=== PATIENT | male | born 1995 | race Caucasian/White ===

== ENCOUNTER 2019-05-16 11:38 | Emergency (ER) | payer MEDICAID ==
--- NOTE | 2019-05-16 12:17 | ERPHSYRPT ---
- History of Present Illness Time Seen by Provider: 05/16/19 12:00 Source: patient Exam Limitations: no limitations Patient Subjective Stated Complaint: pt reports rash to left axillary region for one week. reports he believes it is spreading, reports itching. denies pain or fever. Triage Nursing Assessment: pt is aox3, pupils perrl, afebrile, resps easy and non labored, radial pulses strong and equal, cap refill < 3 seconds, pt skin pink warm dry. area of redness and peeling skin noted to the left axilla, no drainage noted, scattered small, round areas of redness noted to left scapula, left wrist and right knee. areas approx 1cm x 1cm. skin is intact at this time. Physician History: 23 y/o white male presents with a few day h/o itchy rash that began in left axilla and now a few lesions left upper ext. redness present around sites where pt has been scratching. no pus. never had before. no known exposures Quality: itchy Severity: mild Location: extremities (left axilla and left upper ext), axillary (L) Possible Causes: no cause identified Modifying Factors: Improves With: scratching Associated Symptoms: blisters (left axilla ), change in skin texture (left axilla ) Allergies/Adverse Reactions: No Known Drug Allergies Allergy (Verified 05/16/19 12:02) Hx Tetanus, Diphtheria Vaccination/Date Given: Yes Hx Influenza Vaccination/Date Given: No Hx Pneumococcal Vaccination/Date Given: No Immunizations Up to Date: Yes - Review of Systems Constitutional: No Symptoms Eyes: No Symptoms Ears, Nose, & Throat: No Symptoms Respiratory: No Symptoms Cardiac: No Symptoms Abdominal/Gastrointestinal: No Symptoms Genitourinary Symptoms: No Symptoms Musculoskeletal: No Symptoms Skin: Pruritis, Rash, Skin Lesions Neurological: No Symptoms Psychological: No Symptoms Endocrine: No Symptoms Hematologic/Lymphatic: No Symptoms Immunological/Allergic: No Symptoms All Other Systems: Reviewed and Negative - Past Medical History Pertinent Past Medical History: No Neurological History: No Pertinent History ENT History: No Pertinent History Cardiac History: No Pertinent History Respiratory History: No Pertinent History Endocrine Medical History: No Pertinent History Musculoskeletal History: No Pertinent History, Other GI Medical History: No Pertinent History History: No Pertinent History Psycho-Social History: No Pertinent History Male Reproductive Disorders: No Pertinent History - Past Surgical History Past Surgical History: Yes Cardiac: No Pertinent History Respiratory: No Pertinent History Gastrointestinal: No Pertinent History Genitourinary: No Pertinent History Musculoskeletal: No Pertinent History, Orthopedic Surgery Male Surgical History: No Pertinent History Other Surgical History: sinus - Social History Smoking Status: Current every day smoker How long have you smoked: 4 Exposure to second hand smoke: No Drug Use: none Patient Lives Alone: No - Nursing Vital Signs Nursing Vital Signs: Initial Vital Signs Temperature 98.2 F 05/16/19 11:51 Pulse Rate 55 L 05/16/19 11:51 Respiratory Rate 20 05/16/19 11:51 Blood Pressure 117/72 05/16/19 11:51 O2 Sat by Pulse Oximetry 99 05/16/19 11:51 Pain Scale Pain Intensity 0 - Physical Exam General Appearance: no apparent distress, alert Eye Exam: PERRL/EOMI, eyes nml inspection Ears, Nose, Throat Exam: normal ENT inspection, moist mucous membranes Neck Exam: normal inspection, non-tender, supple, full range of motion Respiratory Exam: normal breath sounds, lungs clear, airway intact, No chest tenderness, No respiratory distress Cardiovascular Exam: regular rate/rhythm Gastrointestinal/Abdomen Exam: soft, normal bowel sounds, No tenderness Rectal Exam: not done Back Exam: normal inspection, normal range of motion, No CVA tenderness, No vertebral tenderness Extremity Exam: normal inspection, normal range of motion, pelvis stable Neurologic Exam: alert, oriented x 3, cooperative, pallet rectifier II-XII nml as tested Skin Exam: rash (dry eschar patch left axilla with dry blistered skin plus several single left upper ext left wrist and forearmeschars) Lymphatic Exam: No adenopathy SpO2 Interpretation: normal SpO2: 99 O2 Delivery: Room Air - Course Nursing assessment & vital signs reviewed: Yes - Progress Progress: unchanged Counseled pt/family regarding: diagnosis, need for follow-up - Departure Departure Disposition: Home Clinical Impression: Rash and nonspecific skin eruption, Cellulitis Condition: Stable Critical Care Time: No Additional Instructions: keep all sites clean daily with soap and water. do not scratch. apply ointment prescribed. follow up with primary doctor for further management Prescriptions: Mupirocin [Bactroban OINTMENT] 22 gm TP TID #1 tube Prednisone 10 mg [Deltasone 10 mg] 10 mg PO BID #6 tablet Smz/Tmp Ds Tablet [Bactrim Ds Tablet] 1 udtab PO BID #14 tablet
[2019-05-16 14:06] VITALS: BP 116/78; PULSE 62; O2SAT 99
== END 2019-05-16 14:06 | disposition home or self-care (01) ==
LOC: ED 11:38
DX: R21 Rash and other nonspecific skin eruption (principal); L03.90 Cellulitis, unspecified
CPT/HCPCS: 99283

== ENCOUNTER 2021-05-05 18:33 | Emergency (ER) | payer MEDICAID, OTHER ==
[2021-05-05 19:17] LABS: Absolute Neutrophil Ct (ANC) 1.85 (1.4-6.9); BASOPHIL % 0.7 % (0.0-0.4); Basophil (Absolute #) 0.05 (0-0.4); Eosinophil % 8.6 % (0.00-5.0); Eosinophil (Absolute #) 0.64 (0-0.5); Hematocrit 42.5 % (42-50); Hemoglobin 14.2 gm/dl (12.5-18.0); Lymphocyte (Absolute #) 4.11 (1.0-4.6); Lymphocytes % 55.1 % (24.0-44.0); Mean Cell Volume 96.8 fl (78-100); Mean Corpuscular Hemoglobin 32.3 pg (26-32); Mean Corpuscular Hgb Concent. 33.4 g/dl (32-36); Mean Platelet Volume 11.5 fl (7.5-11.0); Monocyte (Absolute #) 0.81 (0.0-1.3); Monocytes % 10.9 % (0.0-12.0); Neutrophil % 24.7 % (36.0-66.0); Platelet Count 244 K/mm3 (150-450); Red Blood Count 4.39 M/mm3 (4.1-5.6); Red Cell Distribution Width 13.4 % (11.5-14.0); White Blood Count 7.5 K/mm3 (4.0-10.5)
--- NOTE | 2021-05-05 19:21 | ERPHSYRPT ---
- History of Present Illness Time Seen by Provider: 05/05/21 19:18 Source: patient Exam Limitations: no limitations Patient Subjective Stated Complaint: Pt states that he has been having intermittant chest pain for the past couple of weeks and today the pain has increased Triage Nursing Assessment: Pt brought to the ER by his , annabelle alexis, rates pain as 10/10, reports pain under his left breast, skin n/w/d, pulses normal, denies any cardiac history, appears to be in moderate pain Physician History: This is a 25-year-old white male who has no significant medical history and presents with at least a month history of initial intermittent left anterior lower chest pain that is more of an ache. There is been no radiation of pain. He has had no significant cough. He has had no fevers chills. But he has had a ssociated shortness of breath. In the last several days his symptoms of shortness of breath and pain have worsened. He has no primary care physician. He is not having any abdominal pain. He is not having any nausea vomiting or diarrhea symptoms. Activities at Onset: none Severity of Dyspnea-Max: mild Severity of Dyspnea-Current: mild Possible Cause: no prior episodes Associated Symptoms: chest pain/discomfort, No cough, No productive cough Allergies/Adverse Reactions: No Known Drug Allergies Allergy (Verified 05/05/21 18:42) Home Medications: No Reportable Medications [No Reported Medications] 05/05/21 [History] Hx Tetanus, Diphtheria Vaccination/Date Given: Yes Hx Influenza Vaccination/Date Given: No Hx Pneumococcal Vaccination/Date Given: No Travel Risk - International Travel Have you traveled outside of the country in past 3 weeks: No - Coronavirus Screening Are you exhibiting any of the following symptoms?: No Close contact with a COVID-19 positive Pt in past 14-21 Days: No - Vaccine Status Have you recieved a Covid-19 vaccination: No - Review of Systems Constitutional: No Symptoms Eyes: No Symptoms Ears, Nose, & Throat: No Symptoms Respiratory: Dyspnea Cardiac: Chest Pain (Mild left anterior chest without radiation) Abdominal/Gastrointestinal: No Symptoms Genitourinary Symptoms: No Symptoms Musculoskeletal: No Symptoms Skin: No Symptoms Neurological: No Symptoms Psychological: No Symptoms Endocrine: No Symptoms Hematologic/Lymphatic: No Symptoms Immunological/Allergic: No Symptoms All Other Systems: Reviewed and Negative - Past Medical History Pertinent Past Medical History: No Neurological History: No Pertinent History ENT History: No Pertinent History Cardiac History: No Pertinent History Respiratory History: No Pertinent History Endocrine Medical History: No Pertinent History Musculoskeletal History: No Pertinent History GI Medical History: No Pertinent History History: No Pertinent History Psycho-Social History: No Pertinent History Male Reproductive Disorders: No Pertinent History - Past Surgical History Past Surgical History: Yes Cardiac: No Pertinent History Respiratory: No Pertinent History Gastrointestinal: No Pertinent History Genitourinary: No Pertinent History Musculoskeletal: No Pertinent History, Orthopedic Surgery Male Surgical History: No Pertinent History Other Surgical History: sinus - Social History Smoking Status: Current every day smoker How long have you smoked: 4 Exposure to second hand smoke: Yes Drug Use: marijuana Patient Lives Alone: No - Nursing Vital Signs Nursing Vital Signs: Initial Vital Signs Pulse Rate 66 05/05/21 18:36 Respiratory Rate 17 05/05/21 18:36 Blood Pressure 124/83 05/05/21 18:36 O2 Sat by Pulse Oximetry 100 05/05/21 18:36 Pain Scale Pain Intensity 8 - Physical Exam General Appearance: no apparent distress, alert, anxiety Eye Exam: PERRL/EOMI, eyes nml inspection Ears, Nose, Throat Exam: hearing grossly normal, normal ENT inspection, normal pharynx Neck Exam: normal inspection, non-tender, supple, full range of motion Respiratory Exam: normal breath sounds, chest tenderness (Left anterior chest), lungs clear, airway intact, No respiratory distress Cardiovascular/Chest Exam: normal heart sounds, regular rate/rhythm Abdominal/Gastrointestinal Exam: soft, normal bowel sounds, No tenderness Rectal Exam: not done Extremity Exam: non-tender, normal range of motion, normal inspection Neurologic Exam: alert, oriented x 3, cooperative, talent development director II-XII nml as tested, normal mood/affect, nml cerebellar function, nml station & gait Skin Exam: normal color, warm, dry Lymphatic Exam: No adenopathy SpO2 Interpretation: normal SpO2: 100 O2 Delivery: Room Air - Course Nursing assessment & vital signs reviewed: Yes EKG Interpreted by Me: RATE (73), Sinus Rhythm, NORMAL AXIS, NORMAL INTERVALS, Right Bundle Branch Block, NORMAL ST-T, Other (PVCs. No acute ischemic changes on today's EKG. There is no comparison EKG available.) Ordered Tests: Active Orders 24 hr Category Date Time Status Osteopathic Neurologist STAT Care 05/05/21 18:55 Active EKG-ER Only STAT Care 05/05/21 18:55 Active IV Insertion STAT Care 05/05/21 18:55 Active CHEST 2 VIEWS (PA AND LAT) Stat Exams 05/05/21 18:51 Taken CBC W DIFF Stat Lab 05/05/21 18:40 Completed CMP Stat Lab 05/05/21 18:40 Completed D-DIMER QUANTITATIVE Stat Lab 05/05/21 18:40 Completed TROPONIN Q3H Lab 05/05/21 18:40 Completed TROPONIN Q3H Lab 05/05/21 22:00 Ordered TROPONIN Q3H Lab 05/06/21 01:00 Ordered TROPONIN Q3H Lab 05/06/21 04:00 Ordered TROPONIN Q3H Lab 05/06/21 07:00 Ordered Urine Triage Profile Stat Lab 05/05/21 19:07 Completed Medication Summary Discontinued Medications Generic Name Dose Route Start Last Admin Trade Name Freq PRN Reason Stop Dose Admin Hydrocodone Bitart/Acetaminophen 2 tab 05/05/21 19:50 05/05/21 19:53 Wallace 5/325 Mg PO 05/05/21 19:51 2 tab STAT ONE Administration Hydrocodone Bitart/Acetaminophen Confirm 05/05/21 19:52 Wallace 5/325 Mg Administered 05/05/21 19:53 Dose 2 tab .ROUTE .STK-MED ONE Lab/Rad Data: Laboratory Result Diagrams 05/05/21 18:40 05/05/21 18:40 Laboratory Results 05/05/21 05/05/21 05/05/21 Range/Units 19:07 18:40 18:40 WBC (4.0-10.5) K/mm3 RBC (4.1-5.6) M/mm3 Hgb (12.5-18.0) gm/dl Hct (42-50) % MCV (78-100) fl MCH (26-32) pg MCHC (32-36) g/dl RDW (11.5-14.0) % Plt Count (150-450) K/mm3 MPV (7.5-11.0) fl Gran % (36.0-66.0) % Eos # (Auto) (0-0.5) Absolute Lymphs (auto) (1.0-4.6) Absolute Monos (auto) (0.0-1.3) Lymphocytes % (24.0-44.0) % Monocytes % (0.0-12.0) % Eosinophils % (0.00-5.0) % Basophils % (0.0-0.4) % Absolute Granulocytes (1.4-6.9) Basophils # (0-0.4) D-Dimer 283 (215-500) ng/mL Sodium (137-145) mmol/L Potassium (3.5-5.1) mmol/L Chloride (98-107) mmol/L Carbon Dioxide (22-30) mmol/L Anion Gap (5-15) MEQ/L BUN (9-20) mg/dL Creatinine (0.66-1.25) mg/dL Estimated GFR ML/MIN Glucose (74-106) mg/dL Calcium (8.4-10.2) mg/dL Total Bilirubin (0.2-1.3) mg/dL AST (17-59) U/L ALT (0-50) U/L Alkaline Phosphatase (38-126) U/L Troponin I < 0.012 (0.000-0.034) ng/mL Serum Total Protein (6.3-8.2) g/dL Albumin (3.5-5.0) g/dL Urine Opiates Level NEGATIVE (NEGATIVE) Ur Methadone NEGATIVE (NEGATIVE) Urine Barbiturates NEGATIVE (NEGATIVE) Ur Phencyclidine (PCP) NEGATIVE (NEGATIVE) Urine Amphetamine NEGATIVE (NEGATIVE) U Benzodiazepine Level NEGATIVE (NEGATIVE) Urine Cocaine NEGATIVE (NEGATIVE) Urine Marijuana (THC) POSITIVE (NEGATIVE) 05/05/21 05/05/21 Range/Units 18:40 18:40 WBC 7.5 (4.0-10.5) K/mm3 RBC 4.39 (4.1-5.6) M/mm3 Hgb 14.2 (12.5-18.0) gm/dl Hct 42.5 (42-50) % MCV 96.8 (78-100) fl MCH 32.3 H (26-32) pg MCHC 33.4 (32-36) g/dl RDW 13.4 (11.5-14.0) % Plt Count 244 (150-450) K/mm3 MPV 11.5 H (7.5-11.0) fl Gran % 24.7 L (36.0-66.0) % Eos # (Auto) 0.64 H (0-0.5) Absolute Lymphs (auto) 4.11 (1.0-4.6) Absolute Monos (auto) 0.81 (0.0-1.3) Lymphocytes % 55.1 H (24.0-44.0) % Monocytes % 10.9 (0.0-12.0) % Eosinophils % 8.6 H (0.00-5.0) % Basophils % 0.7 (0.0-0.4) % Absolute Granulocytes 1.85 (1.4-6.9) Basophils # 0.05 (0-0.4) D-Dimer (215-500) ng/mL Sodium 140 (137-145) mmol/L Potassium 3.6 (3.5-5.1) mmol/L Chloride 105 (98-107) mmol/L Carbon Dioxide 23 (22-30) mmol/L Anion Gap 15.1 H (5-15) MEQ/L BUN 10 (9-20) mg/dL Creatinine 0.87 (0.66-1.25) mg/dL Estimated GFR > 60.0 ML/MIN Glucose 125 H (74-106) mg/dL Calcium 9.3 (8.4-10.2) mg/dL Total Bilirubin 0.20 (0.2-1.3) mg/dL AST 28 (17-59) U/L ALT 16 (0-50) U/L Alkaline Phosphatase 81 (38-126) U/L Troponin I (0.000-0.034) ng/mL Serum Total Protein 6.9 (6.3-8.2) g/dL Albumin 4.3 (3.5-5.0) g/dL Urine Opiates Level (NEGATIVE) Ur Methadone (NEGATIVE) Urine Barbiturates (NEGATIVE) Ur Phencyclidine (PCP) (NEGATIVE) Urine Amphetamine (NEGATIVE) U Benzodiazepine Level (NEGATIVE) Urine Cocaine (NEGATIVE) Urine Marijuana (THC) (NEGATIVE) - Progress Progress: re-examined Air Movement: good Progress Note: 05/05/21 19:49 Chest x-ray no acute cardiopulmonary process. Blood Culture(s) Obtained: No Antibiotics given: No Counseled pt/family regarding: lab results, diagnosis, need for follow-up, rad results - Departure Departure Disposition: Home Clinical Impression: Shortness of breath Condition: Stable Critical Care Time: No Referrals: DOCTOR,NO FAMILY [Primary Care Provider] - Instructions: Cough, Adult (DC) Additional Instructions: Follow-up with your primary care physician for further management. Stop using any inhalation product such as cigarettes marijuana or other types of exposure to smoke. Forms: Work/School Release Form
[2021-05-05 19:29] LABS: ALBUMIN 4.3 g/dL (3.5-5.0); ALKALINE PHOSPHATASE 81 U/L (38-126); ANION GAP 15.1 MEQ/L (5-15); BLOOD UREA NITROGEN 10 mg/dL (9-20); CHLORIDE 105 mmol/L (98-107); Calcium 9.3 mg/dL (8.4-10.2); Carbon Dioxide 23 mmol/L (22-30); Creatinine 1 0.87 mg/dL (0.66-1.25); EST GLOMERULAR FILTRATION RATE > 60.0 ML/MIN; Glucose 125 mg/dL (74-106); Potassium 3.6 mmol/L (3.5-5.1); SGOT/AST 28 U/L (17-59); SGPT/ALT 16 U/L (0-50); SODIUM 140 mmol/L (137-145); Total Protein 6.9 g/dL (6.3-8.2)
[2021-05-05 19:32] LABS: Amphetamine,Urine NEGATIVE (NEGATIVE); Barbiturate,Urine NEGATIVE (NEGATIVE); Benzodiazepine,Urine NEGATIVE (NEGATIVE); Cocaine,Urine NEGATIVE (NEGATIVE); Methadone,Urine NEGATIVE (NEGATIVE); Opiate,Urine NEGATIVE (NEGATIVE); PCP,Urine NEGATIVE (NEGATIVE); THC,Urine POSITIVE (NEGATIVE)
[2021-05-05 19:41] VITALS: PULSE 68
[2021-05-05] MEDS ORDERED: NORCO 5/325 MG PO ONE (19:50)
[2021-05-05] MEDS ORDERED: NORCO 5/325 MG ONE (19:52)
[2021-05-05 20:11] VITALS: BP 125/81
[2021-05-05 20:12] VITALS: O2SAT 100
--- NOTE | 2021-05-06 08:32 | XRAY ---
Indication: Short of breath. Comparison: None PA/lateral chest demonstrates normal heart, lungs, and bony thorax with a few incidental tiny calcified granulomas.
== END 2021-05-05 20:19 | disposition home or self-care (01) ==
LOC: ED 18:33
DX: R06.02 Shortness of breath (principal); R07.89 Other chest pain
CPT/HCPCS: 36000; 36415; 71046; 80053; 80307; 84484; 85025; 85379; 93005; 93041; 99284; U0003; A9270-GY

== ENCOUNTER 2021-05-11 15:40 | Emergency (ER) | payer MEDICAID ==
[2021-05-11 15:41] VITALS: O2SAT 100
--- NOTE | 2021-05-11 15:45 | ERPHSYRPT ---
- History of Present Illness Time Seen by Provider: 05/11/21 15:45 Source: patient Exam Limitations: no limitations Physician History: This is a 25-year-old white male who presents with laceration to his right lower extremity. It was accidental occurred prior to arrival. Patient was brought in by EMS service. Patient was walking on a glass table when it collapsed causing a laceration to his right anterior tibial region. His tetanus is up-to-date. Timing/Duration: today Quality: painful Severity: moderate Location: extremities (Right anterior mid tibial region ) Allergies/Adverse Reactions: No Known Drug Allergies Allergy (Verified 05/11/21 15:41) Hx Tetanus, Diphtheria Vaccination/Date Given: Yes Hx Influenza Vaccination/Date Given: No Hx Pneumococcal Vaccination/Date Given: No Travel Risk - International Travel Have you traveled outside of the country in past 3 weeks: No - Coronavirus Screening Are you exhibiting any of the following symptoms?: No Close contact with a COVID-19 positive Pt in past 14-21 Days: No - Vaccine Status Have you recieved a Covid-19 vaccination: No - Review of Systems Constitutional: No Symptoms Eyes: No Symptoms Ears, Nose, & Throat: No Symptoms Respiratory: No Symptoms Cardiac: No Symptoms Abdominal/Gastrointestinal: No Symptoms Genitourinary Symptoms: No Symptoms Musculoskeletal: No Symptoms Skin: Other (Laceration mid tibia right side) Neurological: No Symptoms Psychological: No Symptoms Endocrine: No Symptoms Hematologic/Lymphatic: No Symptoms Immunological/Allergic: No Symptoms All Other Systems: Reviewed and Negative - Past Medical History Pertinent Past Medical History: No Neurological History: No Pertinent History ENT History: No Pertinent History Cardiac History: No Pertinent History Respiratory History: No Pertinent History Endocrine Medical History: No Pertinent History Musculoskeletal History: No Pertinent History GI Medical History: No Pertinent History History: No Pertinent History Psycho-Social History: No Pertinent History Male Reproductive Disorders: No Pertinent History - Past Surgical History Past Surgical History: No Cardiac: No Pertinent History Respiratory: No Pertinent History Gastrointestinal: No Pertinent History Genitourinary: No Pertinent History Musculoskeletal: No Pertinent History, Orthopedic Surgery Male Surgical History: No Pertinent History Other Surgical History: sinus - Social History Smoking Status: Current every day smoker How long have you smoked: 4 Exposure to second hand smoke: Yes Drug Use: marijuana Patient Lives Alone: No - Nursing Vital Signs Nursing Vital Signs: Initial Vital Signs Temperature 97.7 F 05/11/21 15:41 Pulse Rate 71 09/04/21 15:41 Respiratory Rate 18 05/11/21 15:41 Blood Pressure 133/77 05/11/21 15:41 O2 Sat by Pulse Oximetry 100 05/11/21 15:41 Pain Scale Pain Intensity 10 - Physical Exam General Appearance: no apparent distress, alert, anxiety Ears, Nose, Throat Exam: normal ENT inspection, moist mucous membranes Neck Exam: normal inspection, non-tender, supple, full range of motion Respiratory Exam: normal breath sounds, lungs clear, airway intact, No chest tenderness, No respiratory distress Cardiovascular Exam: regular rate/rhythm, normal heart sounds, normal peripheral pulses Gastrointestinal/Abdomen Exam: soft, normal bowel sounds, No tenderness Rectal Exam: not done Back Exam: normal inspection, normal range of motion, No CVA tenderness, No vertebral tenderness Extremity Exam: normal inspection, normal range of motion, pelvis stable Neurologic Exam: alert, oriented x 3, cooperative, dealer account manager II-XII nml as tested, normal mood/affect, nml cerebellar function, nml station & gait, sensation nml Skin Exam: warm, other (3 inch x 3 inch deep laceration through the subcutaneous tissue layer. No foreign bodies appreciated. No active bleeding present) Lymphatic Exam: No adenopathy SpO2 Interpretation: normal SpO2: 100 O2 Delivery: Room Air Procedures - Laceration/Wound Repair Right Anterior Other Time of Procedure: 16:00 Wound Location: Right Wound Length (cm): 7.5 Wound's Depth, Shape: into subcut Wound Explored: clean (Wound was explored. Is clean, no foreign body noted, bloodless field and exploration examination occurred to the base of the wound) Irrigated: Yes Hibiclens Prep: Yes Anesthesia: local, 1% Lidocaine Wound Repaired With: sutures, [place] Suture Size/Type: 3-0, prolene Number of Sutures: 4 (+8 ness) Progress: 05/11/21 16:45 After the repair was performed, the area was cleaned and dried and a thin layer of antibiotic ointment was placed overlying the laceration repair site. Nonstick gauze 4 x 4 gauze and pressure dressing was applied to the area. There were no complications. The patient told the procedure well. - Course Nursing assessment & vital signs reviewed: Yes Ordered Tests: Medication Summary Discontinued Medications Generic Name Dose Route Start Last Admin Trade Name Freq PRN Reason Stop Dose Admin Bacitracin Zinc 0.9 gm 05/11/21 15:52 05/11/21 15:58 Baciguent Packet TP 05/11/21 15:53 0.9 gm STAT ONE Administration Bacitracin Zinc Confirm 05/11/21 15:55 Baciguent Packet Administered 05/11/21 15:56 Dose 1 gm .ROUTE .STK-MED ONE Hydromorphone HCl 1 mg 05/11/21 15:51 05/11/21 15:59 Hydromorphone 1 Mg/Ml Injection IM 05/11/21 15:52 1 mg STAT ONE Administration Hydromorphone HCl Confirm 05/11/21 15:56 Hydromorphone 1 Mg/Ml Injection Administered 05/11/21 15:57 Dose 1 mg .ROUTE .STK-MED ONE Lidocaine HCl 10 ml 05/11/21 15:52 05/11/21 15:59 Xylocaine 1% Hcl 20 Ml Mdv IJ 05/11/21 15:53 10 ml STAT ONE Administration Ondansetron HCl 4 mg 05/11/21 15:51 05/11/21 15:57 Zofran Odt 4 Mg PO 05/11/21 15:52 4 mg STAT ONE Administration Ondansetron HCl Confirm 05/11/21 15:56 Zofran Odt 4 Mg Administered 05/11/21 15:57 Dose 4 mg .ROUTE .STK-MED ONE - Progress Progress: improved, pain not gone completely Counseled pt/family regarding: diagnosis, need for follow-up - Departure Departure Disposition: Home Clinical Impression: Laceration of right lower leg Condition: Stable Critical Care Time: No Referrals: DOCTOR,NO FAMILY [Primary Care Provider] - Additional Instructions: Keep the pressure dressing in place for 48 hours. After 48 hours, may take off all the dressings and wash the site with soap and water each day. Blot dry or use a hairdryer to dry the laceration repair site. Apply antibiotic ointment of choice to the laceration repair site each day and cover with a bandage. Follow- up with primary care physician or return to the emergency department for suture and staple removal in approximately 10 days. Forms: Work/School Release Form Prescriptions: Hydrocodone/APAP 5/325 [Rhodelia 5/325 mg] 1 each PO Q8H PRN PRN #8 tablet MDD 3 PRN Reason: Pain Cephalexin Mh 500 mg [Keflex 500 mg] 500 mg PO TID #21 cap
[2021-05-11] MEDS ORDERED: Hydromorphone 1 mg/ml Injection IM ONE (15:51)
[2021-05-11] MEDS ORDERED: ZOFRAN ODT 4 MG PO ONE (15:51)
[2021-05-11] MEDS ORDERED: BACIGUENT PACKET TP ONE (15:52)
[2021-05-11] MEDS ORDERED: XYLOCAINE 1% HCL 20 ML MDV IJ ONE (15:52)
[2021-05-11] MEDS ORDERED: BACIGUENT PACKET ONE (15:55)
[2021-05-11] MEDS ORDERED: ZOFRAN ODT 4 MG ONE (15:56)
[2021-05-11] MEDS ORDERED: Hydromorphone 1 mg/ml Injection ONE (15:56)
[2021-05-11 16:50] VITALS: BP 129/88; PULSE 57
== END 2021-05-11 17:02 | disposition home or self-care (01) ==
LOC: ED 15:40
DX: S81.811A Laceration without foreign body, right lower leg, initial encounter (principal); W18.02XA Striking against glass with subsequent fall, initial encounter; Y93.01 Activity, walking, marching and hiking; Y92.89 Other specified places as the place of occurrence of the external cause
CPT/HCPCS: 12002; 96372; 99284; J1170; Q0162; A9270-GY

== ENCOUNTER 2021-05-23 19:16 | Emergency (ER) | payer MEDICAID ==
[2021-05-23 19:30] VITALS: BP 124/85; PULSE 63; O2SAT 99
--- NOTE | 2021-05-23 19:35 | ERPHSYRPT ---
- History of Present Illness Time Seen by Provider: 05/23/21 19:26 Source: patient Exam Limitations: no limitations Patient Subjective Stated Complaint: Patient states he was in the ER approx 10 days ago after cutting his right jasmine on a glass table. He had sutures and sta ples placed to laceration/cut at that time and they are due to come out today. He missed his 3:30pm appointment today to have them removed due to work schedule. Triage Nursing Assessment: Area is well approximated with 4 sutures and 9 ness intact. No drainage, pain, tenderness, warmth, or swelling noted to area. Slight redness around some ness but is minimal. Moves RLE WNL without difficulties. Ambulating without difficulties. No changes reported in mobility. Physician History: 25 years old with right lower leg laceration almost 10 days ago repaired with sutures and stapling is here for reevaluation and staple/suture removal. Denies any discharge swelling or pain. Allergies/Adverse Reactions: No Known Drug Allergies Allergy (Verified 05/23/21 19:30) Hx Tetanus, Diphtheria Vaccination/Date Given: Yes Hx Influenza Vaccination/Date Given: Yes Hx Pneumococcal Vaccination/Date Given: No Immunizations Up to Date: Yes Travel Risk - International Travel Have you traveled outside of the country in past 3 weeks: No - Coronavirus Screening Are you exhibiting any of the following symptoms?: No Close contact with a COVID-19 positive Pt in past 14-21 Days: No - Vaccine Status Have you recieved a Covid-19 vaccination: Yes [employer]: Unknown - Vaccination Dates Dates if Unknown: Approx January 2021 - Review of Systems Constitutional: No Symptoms Respiratory: No Symptoms Cardiac: No Symptoms Abdominal/Gastrointestinal: No Symptoms Musculoskeletal: No Symptoms Neurological: No Symptoms - Past Medical History Pertinent Past Medical History: No Neurological History: No Pertinent History ENT History: No Pertinent History Cardiac History: No Pertinent History Respiratory History: No Pertinent History Endocrine Medical History: No Pertinent History Musculoskeletal History: No Pertinent History GI Medical History: No Pertinent History History: No Pertinent History Psycho-Social History: No Pertinent History Male Reproductive Disorders: No Pertinent History - Past Surgical History Past Surgical History: No Cardiac: No Pertinent History Respiratory: No Pertinent History Gastrointestinal: No Pertinent History Genitourinary: No Pertinent History Musculoskeletal: No Pertinent History, Orthopedic Surgery Male Surgical History: No Pertinent History Other Surgical History: sinus - Social History Smoking Status: Former smoker How long have you smoked: 4 Exposure to second hand smoke: Yes Drug Use: marijuana Patient Lives Alone: No - Nursing Vital Signs Nursing Vital Signs: Initial Vital Signs Temperature 98 F 05/23/21 19:23 Pulse Rate 63 05/23/21 19:23 Respiratory Rate 18 05/23/21 19:23 Blood Pressure 124/85 05/23/21 19:23 O2 Sat by Pulse Oximetry 99 05/23/21 19:23 Pain Scale Pain Intensity 0 - Physical Exam General Appearance: no apparent distress Neck Exam: normal inspection, full range of motion Respiratory Exam: normal breath sounds, lungs clear Cardiovascular Exam: regular rate/rhythm, normal heart sounds Extremity Exam: other (Right lower leg laceration with staple and sutures. No erythema. All the sutures are removed. Alternate stitches are removed as edges seems to be a little bit . We will continue to have some ness in to avoid wound dehiscence.) Neurologic Exam: alert, oriented x 3, cooperative Skin Exam: normal color SpO2 Interpretation: normal SpO2: 99 O2 Delivery: Room Air - Progress Progress Note: 05/23/21 19:34 Sutures are removed, alternate ness are removed and will give another week to have full strength wound closure to avoid dehiscence as with ambulation I believe with pressure and will come apart. Recommended avoiding exertional activity. Counseled pt/family regarding: diagnosis, need for follow-up - Departure Departure Disposition: Home Clinical Impression: Encounter for wound re-check, Visit for suture removal Condition: Stable Critical Care Time: No Referrals: DOCTOR,NO FAMILY [Primary Care Provider] - Instructions: Wound Care (DC) Additional Instructions: Return to ER in 1 week for rest of staple removal. Keep it clean. Avoid exertional activity.
== END 2021-05-23 19:40 | disposition home or self-care (01) ==
LOC: ED 19:16
DX: Z48.02 Encounter for removal of sutures (principal)
CPT/HCPCS: 99283; G0463

== ENCOUNTER 2021-08-29 16:26 | Emergency (ER) | payer MEDICAID ==
--- NOTE | 2021-08-29 16:41 | ERPHSYRPT ---
- History of Present Illness Time Seen by Provider: 08/29/21 16:41 Historian: patient Exam Limitations: no limitations Physician History: This is a 25-year-old white male who takes no medications chronically and has no known drug allergies and presents with multiple complaints including abdominal discomfort, body aches and pains and severe headache. Patient states the primary reason he is here is his severe headache without history of trauma. Patient states he has had the headache for approximately 1 week and has been using Tylenol and ibuprofen with minimal relief. He has not sought medical care for these conditions. He has no significant chest pain, he has no shortness of breath. He denies fever. He has no known exposure individuals with viral illnesses. Patient himself states that he has anxiety issues. He does smoke cigarettes. Patient also states he smokes "a lot of marijuana" Timing/Duration: week(s) Activities at Onset: none Quality: aching Abdominal Pain Onset Location: generalized abdomen Severity of Pain-Max: mild Severity of Pain-Current: none Modifying Factors: Improves With: nothing Associated Symptoms: other (Headache) Previous symptoms: no prior history Allergies/Adverse Reactions: No Known Drug Allergies Allergy (Verified 08/29/21 16:52) Hx Tetanus, Diphtheria Vaccination/Date Given: Yes Hx Influenza Vaccination/Date Given: Yes Hx Pneumococcal Vaccination/Date Given: No Travel Risk - International Travel Have you traveled outside of the country in past 3 weeks: No - Coronavirus Screening Are you exhibiting any of the following symptoms?: Yes Symptoms: Headaches/Body Aches/Fatigue Close contact with a COVID-19 positive Pt in past 14-21 Days: No - Vaccine Status Have you recieved a Covid-19 vaccination: Yes 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 - Vaccination Dates Dates if Unknown: Approx January 2021 - Review of Systems Constitutional: No Symptoms Eyes: No Symptoms Ears, Nose, & Throat: No Symptoms Respiratory: No Symptoms Cardiac: No Symptoms Abdominal/Gastrointestinal: Abdominal Pain (Mild generalized) Genitourinary Symptoms: No Symptoms Musculoskeletal: Arthralgias, Myalgias Skin: No Symptoms Neurological: Headache Psychological: No Symptoms Endocrine: No Symptoms Hematologic/Lymphatic: No Symptoms Immunological/Allergic: No Symptoms All Other Systems: Reviewed and Negative - Past Medical History Pertinent Past Medical History: No Neurological History: No Pertinent History ENT History: No Pertinent History Cardiac History: No Pertinent History Respiratory History: No Pertinent History Endocrine Medical History: No Pertinent History Musculoskeletal History: No Pertinent History GI Medical History: No Pertinent History History: No Pertinent History Psycho-Social History: No Pertinent History Male Reproductive Disorders: No Pertinent History - Past Surgical History Past Surgical History: No Cardiac: No Pertinent History Respiratory: No Pertinent History Gastrointestinal: No Pertinent History Genitourinary: No Pertinent History Musculoskeletal: No Pertinent History, Orthopedic Surgery Male Surgical History: No Pertinent History Other Surgical History: sinus - Social History Smoking Status: Former smoker How long have you smoked: 4 Exposure to second hand smoke: Yes Drug Use: marijuana Patient Lives Alone: No - Nursing Vital Signs Nursing Vital Signs: Initial Vital Signs Temperature 96.3 F 08/29/21 16:31 Pulse Rate 76 08/29/21 16:31 Respiratory Rate 19 08/29/21 16:31 Blood Pressure 162/94 08/29/21 16:31 O2 Sat by Pulse Oximetry 99 08/29/21 16:31 Pain Scale Pain Intensity 6 - Physical Exam General Appearance: no apparent distress, alert, anxiety Eye Exam: PERRL/EOMI, eyes nml inspection Ears, Nose, Throat Exam: normal ENT inspection, moist mucous membranes Neck Exam: normal inspection, supple, full range of motion Respiratory Exam: normal breath sounds, lungs clear, airway intact, No chest tenderness, No respiratory distress Cardiovascular Exam: regular rate/rhythm, normal heart sounds, normal peripheral pulses Gastrointestinal/Abdomen Exam: soft, normal bowel sounds, No tenderness Rectal Exam: not done Back Exam: normal inspection, normal range of motion, No CVA tenderness Extremity Exam: normal inspection, normal range of motion, pelvis stable Neurologic Exam: alert, oriented x 3, cooperative, nurse advisor II-XII nml as tested, normal mood/affect, nml cerebellar function, nml station & gait, sensation nml Skin Exam: normal color, warm, dry Lymphatic Exam: No adenopathy SpO2 Interpretation: normal O2 Delivery: Room Air - Course Nursing assessment & vital signs reviewed: Yes EKG Interpreted by Me: RATE (65), Sinus Rhythm, NORMAL AXIS, NORMAL INTERVALS, Right Bundle Branch Block, NORMAL ST-T, Other (No acute ischemic changes on today's EKG. No change from the EKG dated 05/05/2021.) Ordered Tests: Active Orders 24 hr Category Date Time Status EKG-ER Only STAT Care 08/29/21 17:03 Active IV Insertion STAT Care 08/29/21 17:03 Active HEAD WITHOUT CONTRAST [CT] Stat Exams 08/29/21 17:04 Taken AMYLASE Stat Lab 08/29/21 17:26 Completed CBC W DIFF Stat Lab 08/29/21 17:26 Completed CMP Stat Lab 08/29/21 17:26 Completed INFLUENZA A+B CHRISTINE Stat Lab 08/29/21 17:23 Completed LIPASE Stat Lab 08/29/21 17:26 Completed Lactic Acid Stat Lab 08/29/21 17:03 Ordered [place] Screen Stat Lab 08/29/21 17:26 Completed TROPONIN Q3H Lab 08/29/21 17:26 Completed TROPONIN Q3H Lab 08/29/21 20:15 Ordered TROPONIN Q3H Lab 08/29/21 23:15 Ordered TROPONIN Q3H Lab 08/30/21 02:15 Ordered TROPONIN Q3H Lab 08/30/21 05:15 Ordered UA W/RFX UR CULTURE Stat Lab 08/29/21 17:22 Completed Urine Triage Profile Stat Lab 08/29/21 17:22 Completed Lab/Rad Data: Laboratory Result Diagrams 08/29/21 17:26 08/29/21 17:26 Laboratory Results 08/29/21 08/29/21 08/29/21 Range/Units 17:26 17:26 17:26 WBC (4.0-10.5) K/mm3 RBC (4.1-5.6) M/mm3 Hgb (12.5-18.0) gm/dl Hct (42-50) % MCV (78-100) fl MCH (26-32) pg MCHC (32-36) g/dl RDW (11.5-14.0) % Plt Count (150-450) K/mm3 MPV (7.5-11.0) fl Gran % (36.0-66.0) % Eos # (Auto) (0-0.5) Absolute Lymphs (auto) (1.0-4.6) Absolute Monos (auto) (0.0-1.3) Lymphocytes % (24.0-44.0) % Monocytes % (0.0-12.0) % Eosinophils % (0.00-5.0) % Basophils % (0.0-0.4) % Absolute Granulocytes (1.4-6.9) Basophils # (0-0.4) Sodium 141 (137-145) mmol/L Potassium 3.7 (3.5-5.1) mmol/L Chloride 102 (98-107) mmol/L Carbon Dioxide 28 (22-30) mmol/L Anion Gap 14.4 (5-15) MEQ/L BUN 13 (9-20) mg/dL Creatinine 0.85 (0.66-1.25) mg/dL Estimated GFR > 60.0 ML/MIN Glucose 78 (74-106) mg/dL Calcium 9.5 (8.4-10.2) mg/dL Total Bilirubin 0.50 (0.2-1.3) mg/dL AST 31 (17-59) U/L ALT 16 (0-50) U/L Alkaline Phosphatase 75 (38-126) U/L Troponin I < 0.012 (0.000-0.034) ng/mL Serum Total Protein 8.0 (6.3-8.2) g/dL Albumin 4.8 (3.5-5.0) g/dL Amylase 84 (30-110) U/L Lipase 84 (23-300) U/L Urine Color (YELLOW) Urine Appearance (CLEAR) Urine pH (5-6) Ur Specific Homer (1.005-1.025) Urine Protein (Negative) Urine Ketones (NEGATIVE) Urine Blood (0-5) Arnel/ul Urine Nitrite (NEGATIVE) Urine Bilirubin (NEGATIVE) Urine Urobilinogen (0-1) mg/dL Ur Leukocyte Esterase (NEGATIVE) Urine WBC (Auto) (0-5) /HPF Urine RBC (Auto) (0-2) /HPF U Epithel Cells (Auto) (FEW) /HPF Urine Bacteria (Auto) (NEGATIVE) /HPF Urine Mucus (Auto) (NEGATIVE) /HPF Urine Culture Reflexed (NO) Urine Glucose (NEGATIVE) mg/dL Urine Opiates Level (NEGATIVE) Ur Methadone (NEGATIVE) Urine Barbiturates (NEGATIVE) Ur Phencyclidine (PCP) (NEGATIVE) Urine Amphetamine (NEGATIVE) U Benzodiazepine Level (NEGATIVE) Urine Cocaine (NEGATIVE) Urine Marijuana (THC) (NEGATIVE) Monoscreen NEGATIVE (Negative) Influenza Type A Ag (NEGATIVE) Influenza Type B Ag (NEGATIVE) Group A Strep Antibody (NEGATIVE) 08/29/21 08/29/21 08/29/21 Range/Units 17:26 17:23 17:23 WBC 4.6 (4.0-10.5) K/mm3 RBC 5.31 (4.1-5.6) M/mm3 Hgb 16.7 (12.5-18.0) gm/dl Hct 50.2 H (42-50) % MCV 94.5 (78-100) fl MCH 31.5 (26-32) pg MCHC 33.3 (32-36) g/dl RDW 13.2 (11.5-14.0) % Plt Count 215 (150-450) K/mm3 MPV 11.1 H (7.5-11.0) fl Gran % 43.1 (36.0-66.0) % Eos # (Auto) 0.10 (0-0.5) Absolute Lymphs (auto) 1.91 (1.0-4.6) Absolute Monos (auto) 0.61 (0.0-1.3) Lymphocytes % 41.3 (24.0-44.0) % Monocytes % 13.2 H (0.0-12.0) % Eosinophils % 2.2 (0.00-5.0) % Basophils % 0.2 (0.0-0.4) % Absolute Granulocytes 2.00 (1.4-6.9) Basophils # 0.01 (0-0.4) Sodium (137-145) mmol/L Potassium (3.5-5.1) mmol/L Chloride (98-107) mmol/L Carbon Dioxide (22-30) mmol/L Anion Gap (5-15) MEQ/L BUN (9-20) mg/dL Creatinine (0.66-1.25) mg/dL Estimated GFR ML/MIN Glucose (74-106) mg/dL Calcium (8.4-10.2) mg/dL Total Bilirubin (0.2-1.3) mg/dL AST (17-59) U/L ALT (0-50) U/L Alkaline Phosphatase (38-126) U/L Troponin I (0.000-0.034) ng/mL Serum Total Protein (6.3-8.2) g/dL Albumin (3.5-5.0) g/dL Amylase (30-110) U/L Lipase (23-300) U/L Urine Color (YELLOW) Urine Appearance (CLEAR) Urine pH (5-6) Ur Specific Homer (1.005-1.025) Urine Protein (Negative) Urine Ketones (NEGATIVE) Urine Blood (0-5) Arnel/ul Urine Nitrite (NEGATIVE) Urine Bilirubin (NEGATIVE) Urine Urobilinogen (0-1) mg/dL Ur Leukocyte Esterase (NEGATIVE) Urine WBC (Auto) (0-5) /HPF Urine RBC (Auto) (0-2) /HPF U Epithel Cells (Auto) (FEW) /HPF Urine Bacteria (Auto) (NEGATIVE) /HPF Urine Mucus (Auto) (NEGATIVE) /HPF Urine Culture Reflexed (NO) Urine Glucose (NEGATIVE) mg/dL Urine Opiates Level (NEGATIVE) Ur Methadone (NEGATIVE) Urine Barbiturates (NEGATIVE) Ur Phencyclidine (PCP) (NEGATIVE) Urine Amphetamine (NEGATIVE) U Benzodiazepine Level (NEGATIVE) Urine Cocaine (NEGATIVE) Urine Marijuana (THC) (NEGATIVE) Monoscreen (Negative) Influenza Type A Ag NEGATIVE (NEGATIVE) Influenza Type B Ag NEGATIVE (NEGATIVE) Group A Strep Antibody NOT DETECTED (NEGATIVE) 08/29/21 08/29/21 Range/Units 17:22 17:22 WBC (4.0-10.5) K/mm3 RBC (4.1-5.6) M/mm3 Hgb (12.5-18.0) gm/dl Hct (42-50) % MCV (78-100) fl MCH (26-32) pg MCHC (32-36) g/dl RDW (11.5-14.0) % Plt Count (150-450) K/mm3 MPV (7.5-11.0) fl Gran % (36.0-66.0) % Eos # (Auto) (0-0.5) Absolute Lymphs (auto) (1.0-4.6) Absolute Monos (auto) (0.0-1.3) Lymphocytes % (24.0-44.0) % Monocytes % (0.0-12.0) % Eosinophils % (0.00-5.0) % Basophils % (0.0-0.4) % Absolute Granulocytes (1.4-6.9) Basophils # (0-0.4) Sodium (137-145) mmol/L Potassium (3.5-5.1) mmol/L Chloride (98-107) mmol/L Carbon Dioxide (22-30) mmol/L Anion Gap (5-15) MEQ/L BUN (9-20) mg/dL Creatinine (0.66-1.25) mg/dL Estimated GFR ML/MIN Glucose (74-106) mg/dL Calcium (8.4-10.2) mg/dL Total Bilirubin (0.2-1.3) mg/dL AST (17-59) U/L ALT (0-50) U/L Alkaline Phosphatase (38-126) U/L Troponin I (0.000-0.034) ng/mL Serum Total Protein (6.3-8.2) g/dL Albumin (3.5-5.0) g/dL Amylase (30-110) U/L Lipase (23-300) U/L Urine Color YELLOW (YELLOW) Urine Appearance SLIGHTLY CLOUDY (CLEAR) Urine pH 5.0 (5-6) Ur Specific Homer 1.025 (1.005-1.025) Urine Protein NEGATIVE (Negative) Urine Ketones SMALL (NEGATIVE) Urine Blood NEGATIVE (0-5) Arnel/ul Urine Nitrite NEGATIVE (NEGATIVE) Urine Bilirubin NEGATIVE (NEGATIVE) Urine Urobilinogen 2 (0-1) mg/dL Ur Leukocyte Esterase NEGATIVE (NEGATIVE) Urine WBC (Auto) 0-2 (0-5) /HPF Urine RBC (Auto) NONE (0-2) /HPF U Epithel Cells (Auto) RARE (FEW) /HPF Urine Bacteria (Auto) NONE (NEGATIVE) /HPF Urine Mucus (Auto) MANY (NEGATIVE) /HPF Urine Culture Reflexed NO (NO) Urine Glucose NEGATIVE (NEGATIVE) mg/dL Urine Opiates Level NEGATIVE (NEGATIVE) Ur Methadone NEGATIVE (NEGATIVE) Urine Barbiturates NEGATIVE (NEGATIVE) Ur Phencyclidine (PCP) NEGATIVE (NEGATIVE) Urine Amphetamine NEGATIVE (NEGATIVE) U Benzodiazepine Level NEGATIVE (NEGATIVE) Urine Cocaine NEGATIVE (NEGATIVE) Urine Marijuana (THC) POSITIVE (NEGATIVE) Monoscreen (Negative) Influenza Type A Ag (NEGATIVE) Influenza Type B Ag (NEGATIVE) Group A Strep Antibody (NEGATIVE) - Progress Progress: improved, pain not gone completely, re-examined Progress Note: 08/29/21 18:43 CAT scan of the head shows moderate to severe paranasal sinus disease but no acute intracranial abnormality. Counseled pt/family regarding: lab results, diagnosis, need for follow-up, rad results - Departure Departure Disposition: Home Clinical Impression: Sinusitis Condition: Stable Critical Care Time: No Referrals: DOCTOR,NO FAMILY [Primary Care Provider] - Follow up/PCP as directed Additional Instructions: Take your medication as prescribed. Follow-up with your primary care physician for further management. Prescriptions: Prednisone 10 mg [Deltasone 10 mg] 10 mg PO TID #12 tablet Azithromycin 250 mg [Zithromax 250 MG TABLET] 250 mg PO ZPACK #6 tablet
[2021-08-29 17:32] LABS: BASOPHIL % 0.2 % (0.0-0.4); Basophil (Absolute #) 0.01 (0-0.4); Eosinophil % 2.2 % (0.00-5.0); Hematocrit 50.2 % (42-50); Hemoglobin 16.7 gm/dl (12.5-18.0); Lymphocyte (Absolute #) 1.91 (1.0-4.6); Lymphocytes % 41.3 % (24.0-44.0); Mean Cell Volume 94.5 fl (78-100); Mean Corpuscular Hemoglobin 31.5 pg (26-32); Mean Corpuscular Hgb Concent. 33.3 g/dl (32-36); Mean Platelet Volume 11.1 fl (7.5-11.0); Monocyte (Absolute #) 0.61 (0.0-1.3); Monocytes % 13.2 % (0.0-12.0); Neutrophil % 43.1 % (36.0-66.0); Platelet Count 215 K/mm3 (150-450); Red Blood Count 5.31 M/mm3 (4.1-5.6); Red Cell Distribution Width 13.2 % (11.5-14.0); White Blood Count 4.6 K/mm3 (4.0-10.5)
[2021-08-29 17:40] LABS: Appearance SLIGHTLY CLOUDY (CLEAR); Bilirubin NEGATIVE (NEGATIVE); Blood NEGATIVE Ery/ul (0-5); Epithelial Cells RARE /HPF (FEW); Glucose NEGATIVE (NEGATIVE); Ketones SMALL (NEGATIVE); Leukocyte Esterase NEGATIVE (NEGATIVE); Mucus MANY /HPF (NEGATIVE); Nitrite NEGATIVE (NEGATIVE); Protein,Urine Dip NEGATIVE (Negative); Specific Gravity 1.025 (1.005-1.025); Urobilinogen 2 mg/dL (0-1); WBC 0-2 /HPF (0-5)
[2021-08-29 17:48] LABS: ALBUMIN 4.8 g/dL (3.5-5.0); ALKALINE PHOSPHATASE 75 U/L (38-126); AMYLASE 84 U/L (30-110); ANION GAP 14.4 MEQ/L (5-15); BLOOD UREA NITROGEN 13 mg/dL (9-20); CHLORIDE 102 mmol/L (98-107); Calcium 9.5 mg/dL (8.4-10.2); Carbon Dioxide 28 mmol/L (22-30); Creatinine 1 0.85 mg/dL (0.66-1.25); EST GLOMERULAR FILTRATION RATE > 60.0 ML/MIN; Glucose 78 mg/dL (74-106); LIPASE 84 U/L (23-300); Potassium 3.7 mmol/L (3.5-5.1); SGOT/AST 31 U/L (17-59); SGPT/ALT 16 U/L (0-50); SODIUM 141 mmol/L (137-145)
[2021-08-29 17:51] LABS: Amphetamine,Urine NEGATIVE (NEGATIVE); Barbiturate,Urine NEGATIVE (NEGATIVE); Benzodiazepine,Urine NEGATIVE (NEGATIVE); Cocaine,Urine NEGATIVE (NEGATIVE); Methadone,Urine NEGATIVE (NEGATIVE); Opiate,Urine NEGATIVE (NEGATIVE); PCP,Urine NEGATIVE (NEGATIVE); THC,Urine POSITIVE (NEGATIVE)
[2021-08-29 18:42] LABS: INFLUENZA A NEGATIVE (NEGATIVE); INFLUENZA B NEGATIVE (NEGATIVE)
[2021-08-29] MEDS ORDERED: solu-MEDROL 125 MG, Sterile H2O 10 ml 2 ML IV ONE ×2 (18:45)
[2021-08-29] MEDS ORDERED: ROCEPHIN 1 Gm-D5w 50 ml Bag** 1 G/50 ML IVPB IV STA (18:45)
[2021-08-29] MEDS ORDERED: solu-MEDROL ONE (19:07)
[2021-08-29] MEDS ORDERED: ROCEPHIN 1 Gm-D5w 50 ml Bag** 1 G/50 ML IVPB IV ONE (19:08)
[2021-08-29] MEDS ORDERED: Sterile H2O 10 ml IJ ONE (19:08)
[2021-08-29] MEDS ORDERED: Zofran 4 MG/2 ML VIAL IV ONE (19:15)
[2021-08-29] MEDS ORDERED: TYLENOL 325 MG PO STA (19:15)
[2021-08-29] MEDS ORDERED: TYLENOL 325 MG ONE (19:25)
[2021-08-29] MEDS ORDERED: Zofran 4 MG/2 ML VIAL ONE (19:25)
[2021-08-29 19:45] VITALS: BP 104/61; PULSE 53; O2SAT 99
--- NOTE | 2021-08-30 08:38 | XRAY ---
Indication: Headache 1 month. Multiple contiguous axial images obtained through the head without contrast. Comparison: February 08, 2014. Normal appearing brain parenchyma, ventricles, and bony calvarium. Worsening diffuse moderate/significant pansinusitis. Again 2.4 cm right sphenoid sinus polyp/retention cyst. Mastoid air cells are clear. Impression: Worsening pansinusitis. Remaining CT head without contrast exam is normal. Comment: Preliminary interpretation made by [facility]. No critical discrepancy.
== END 2021-08-29 19:56 | disposition home or self-care (01) ==
LOC: ED 16:26
DX: J01.40 Acute pansinusitis, unspecified (principal); R10.84 Generalized abdominal pain; Z72.0 Tobacco use; Z79.899 Other long term (current) drug therapy
CPT/HCPCS: 36000; 36415; 70450; 80053; 80307; 81001; 82150; 83605; 83690; 84484; 85025; 86308; 87400; 87651; 93005; 96374; 99284; J0696; J2405; J2930; A9270-GY